=== PATIENT | male | born 1985 | race African-American/Black ===

== ENCOUNTER 2017-03-05 12:30 | Emergency (ER) | payer SELFPAY ==
[2017-03-05 12:31] VITALS: BP 141/72; PULSE 89; RESP 12; TEMP 97.9; O2SAT 99
--- NOTE | 2017-03-05 14:17 | RADRPT ---
EXAM DATE/TIME: 03/05/2017 13:30 [place] COMPARISON: No previous studies available for comparison. INDICATIONS : Twisted right knee 3 days ago, pain when fully extended, pain is anterior and moves around both sides to the popliteal area MEDICAL HISTORY : None. SURGICAL HISTORY : None. ENCOUNTER: Initial ACUITY: 3 days PAIN SCORE: 10/10 LOCATION: Right knee FINDINGS: Four view examination of the right knee demonstrates no evidence of fracture or dislocation. Bony mi neralization is normal. The articular surfaces are intact. Moderately large suprapatellar effusion. CONCLUSION: 1. Moderately large suprapatellar effusion. 2. No fracture. Max Crowder MD on March 05, 2017 at 14:14 Board Certified Radiologist. This report was verified electronically.
[2017-03-05] MEDS ORDERED: ALEV220T14 PO (14:26)
--- NOTE | 2017-03-05 14:39 | PD ---
HPI Chief Complaint: Musculoskeletal Complaint Time Seen by Provider: 14:10 Travel History International Travel<30 days: No Contact w/Intl Traveler<30days: No Traveled to known affect area: No History of Present Illness HPI 31-year-old male patient presents emergency department for evaluation of right knee pain after playing football yesterday. Patient states he believes he hyperextended his right knee when his foot was planted in the ground and he leaned forward to catch a ball. He states he heard a pop. He is ambulatory with a limp. Right leg is neurovascularly intact. No obvious deformities, no ecchymosis or erythema. Moderate edema noted surrounding right patella. Patient is a major medical history does not take any daily medication. Patient is visiting [place] from [place] and is flying back later today. [facility] Social History Tobacco Use: No Allergies-Medications (Allergen,Severity, Reaction): Coded Allergies: Penicillins (Verified Allergy, Unknown, 03/05/17) Reported Meds & Prescriptions Reported Meds & Active Scripts Active Reported Aleve Arthritis (Naproxen Sodium) 220 Mg Tab 220 Mg PO BID Review of Systems Except as stated in HPI: all other systems reviewed are Neg Physical Exam Narrative GENERAL: Well-nourished, well-developed 31-year-old male patient in no acute distress. Nontoxic appearing. SKIN: Focused skin assessment warm/dry. HEAD: Normocephalic. Atraumatic. EYES: No scleral icterus. No injection or drainage. NECK: Supple, trachea midline. No JVD or lymphadenopathy. CARDIOVASCULAR: Regular rate and rhythm without murmurs, gallops, or rubs. Pedal pulses +2 bilaterally. RESPIRATORY: Breath sounds equal bilaterally. No accessory muscle use. GASTROINTESTINAL: Abdomen soft, non-tender, nondistended. MUSCULOSKELETAL: Moderate right knee edema. Full range of motion with flexion, slightly limited range of motion with extension. No obvious deformity, ecchymosis or erythema. BACK: Nontender without obvious deformity. No CVA tenderness. Data Data Last Documented VS Vital Signs Date Time Temp Pulse Resp B/P (MAP) Pulse Ox O2 Delivery O2 Flow Rate FiO2 03/05/17 12:31 97.9 89 12 141/72 (95) 99 Orders Orders Knee, Complete (4vws) (03/05/17 ) Ed Discharge Order (03/05/17 14:39) Ice/Cold Pack (03/05/17 14:40) Splint Or Brace Apply/Monitor (03/05/17 14:40) Crutches (03/05/17 14:40) Ibuprofen (Motrin) (03/05/17 14:45) Immobilizer Knee 20 Inch (03/05/17 ) MDM Medical Decision Making Medical Screen Exam Complete: Yes Emergency Medical Condition: Yes Differential Diagnosis Differential diagnosis includes but not limited to knee sprain, knee effusion, knee pain, knee contusion Narrative Course X-ray of the right knee shows moderate large suprapatellar effusion, no fracture. Ibuprofen ordered for pain management. Ice applied to the right knee. Patient is discharged home with a knee immobilizer, crutches and instructions to follow-up with his orthopedist when he arrives back in [place]. Patient states he will follow up with orthopedist at home. Patient discharged at this time. Last Impressions Knee X-Ray 03/05/17 0000 Signed Impressions: Service Date/Time: February 13:30 - CONCLUSION: 1. Moderately large suprapatellar effusion. 2. No fracture. Max rCowder MD Diagnosis Primary Impression: Knee sprain Qualified Codes: S83.91XA - Sprain of unspecified site of right knee, initial encounter Referrals: Orthopedist Primary Care Physician Patient Instructions: General Instructions, Knee Sprain (ED), Knee Sprain Exercises (GEN) Additional Instructions: Please return to emergency department if your symptoms return or worsen. Follow up with your primary care provider. Follow-up with orthopedist. Rice therapy to right knee, rest, ice, immobilize with activity and elevate with resting. Ibuprofen as needed for pain and swelling. Disposition: 01 DISCHARGE HOME Condition: Stable Radha Gonzales MOHAMUD Mar 05, 2017 14:39
[2017-03-05] MEDS ORDERED: IBUPROFEN 800 MG TAB PO ONE (14:45)
== END 2017-03-05 15:27 | disposition home or self-care (01) ==
LOC: NEPK 12:30
DX: S83.91XA Sprain of unspecified site of right knee, initial encounter (principal); X50.9XXA Other and unspecified overexertion or strenuous movements or postures, initial encounter; Y93.61 Activity, american tackle football
CPT/HCPCS: 73564; 99284; E0113; L1830